=== PATIENT | female | born 1955 | race Caucasian/White ===

== ENCOUNTER 2016-12-11 18:17 | Emergency (ER) | payer BC ==
[~2016-12-11] VITALS: Ht 172.7 cm; Wt 65.8 kg
[~2016-12-11 18:17] MED LIST: IRON; LVT.1T PO; SULF1TAB38 PO
[2016-12-11] MEDS ORDERED: TETANUS,DIPTH,PERTUSS P/F (BOOSTRIX) 0.5 ML VIAL IM ONE ×2 (19:03→19:30)
--- NOTE | 2016-12-11 19:24 | ED Upper Extremity ---
General Stated Complaint: R HAND THUMB LAC Source: patient Exam Limitations: no limitations History of Present Illness Time seen by provider: 19:22 Initial Comments To ER with laceration to the lateral distal right thumb from a box knife. Tetanus is not up-to-date. Onset: just prior to arrival Severity: moderate Pain/Injury Location: left thumb Modifying Factors: Improves With Movement Allergies and Home Medications Allergies Coded Allergies: Cephalexin Monohydrate (Unverified Allergy, SWELLING OF LIPS AND EYES, 02/12) Home Medications Levothyroxine Sodium 100 Mcg Tab, 100 MG PO DAILY, (Reported) Trimethoprim/Sulfamethoxazole 1 Ea Tablet, 1 EA PO BID for 7 Days, Ref 0 Prescribed by: TONIA APPIAH on 10/14/11 2150 [Iron] , (Reported) Constitutional: see HPI EENTM: see HPI Respiratory: no symptoms reported Cardiovascular: no symptoms reported Genitourinary: no symptoms reported Musculoskeletal: see HPI Skin: no symptoms reported Psychiatric/Neurological: No Symptoms Reported Past Havhahh-Xbbttv-Mivxpj Hx Patient Social History Recent Foreign Travel: No Contact w/Someone Who Travel: No Immunizations Up To Date Date of Influenza Vaccine: May 15, 2011 Physical Exam Vital Signs Capillary Refill : General Appearance: WD/WN, no apparent distress HEENT: PERRL/EOMI, normal ENT inspection Neck: non-tender, full range of motion Respiratory: no respiratory distress, no accessory muscle use Gastrointestinal: normal bowel sounds, non tender Shoulder: normal inspection, non-tender Elbow/Forearm: normal inspection, non-tender, Left Hand: Left, laceration (0.5 cm laceration to the side of the distal thumb. Bleeding is easily controlled.) Neurologic/Psychiatric: alert, normal mood/affect, oriented x 3 Skin: normal color, warm/dry Laceration Repair : Wound Location: Upper Extremities Other Closure Supply: Wound Adhesive Departure Impression Impression: Primary Impression: Thumb laceration Disposition: 01 HOME, SELF-CARE Condition: Stable Departure-Patient Inst. Decision time for Depature: 19:24 Referrals: BENOIT MEYERS DO (PCP/Family) Primary Care Physician Patient Instructions: Laceration Repair With Glue (DC) Add. Discharge Instructions: 1. Return to ER for any concerns 2. Allow the glue to follow off on its own in 3-5 days. Wear the finger tip protector until then. CHRYSTAL BENEDICT APRN December 11, 2016 19:24
[2016-12-11 19:25] VITALS: BP 0/0
== END 2016-12-11 19:25 | disposition home or self-care (01) ==
LOC: EDUNIT# 18:17 → ER 18:19
DX: S61.011A Laceration without foreign body of right thumb without damage to nail, initial encounter (principal); Z23 Encounter for immunization; W26.0XXA Contact with knife, initial encounter; Y99.8 Other external cause status
CPT/HCPCS: 12001; 90715

== ENCOUNTER 2017-09-05 09:01 | Outpatient (CLI) | payer BC ==
[~2017-09-05] VITALS: Ht 172.7 cm; Wt 72.6 kg
[2017-09-05] MEDS ORDERED: LEVO125T6 PO (15:34)
== END 2017-09-05 15:36 ==
LOC: PREOP 09:01
PROVIDERS: ATTEND Surgery
DX: Z01.818 Encounter for other preprocedural examination (principal); Z86.010 Personal history of colon polyps

== ENCOUNTER → 2017-09-06 | Outpatient (CLI) | payer BC ==
[~2017-09-06] MED LIST changes: +LEVO125T6 PO
--- NOTE | 2017-09-06 18:53 | Diagnostic Imaging Report ---
INDICATION: Routine screening. Comparison is made with prior study from 01/26/2015 and 12/30/2013. The current study was also evaluated with a Computer Aided Detection (CAD) system. Both breasts remain heterogeneously dense, limiting the sensitivity of mammography. The parenchymal pattern is stable. No dominant mass or malignant-appearing microcalcifications are seen. The axillae are unremarkable. IMPRESSION: No mammographic features suspicious for malignancy are identified. ACR BI-RADS Category 1: Negative. Result letter will be mailed to the patient. Note: At least 10% of breast cancer is not imaged by mammography. Dictated by: Dictated on workstation # [id number]
== END ==
LOC: RAD 10:07
PROVIDERS: ATTEND Family Medicine
DX: Z12.31 Encounter for screening mammogram for malignant neoplasm of breast (principal)
CPT/HCPCS: 77067

== ENCOUNTER 2017-09-12 08:26 | Day surgery (SDC) | payer BC ==
--- NOTE | 2017-09-11 14:42 | History & Physicial ---
History of Present Illness History of Present Illness Reason for visit/HPI To undergo surveillance colonoscopy, having had a personal history of polyps Date of Admission 09/12/17 Date Seen by Provider: Sep 11, 2017 Time Seen by Provider: 14:42 I consulted on this patient on 09/11/17 14:37 Attending Physician Josi Gil MD Admitting Physician Wong Moreau DO Consult Allergies and Home Medications Allergies Coded Allergies: Cephalexin Monohydrate (Unverified Allergy, SWELLING OF LIPS AND EYES, 02/12) Home Medications Levothyroxine Sodium 125 Mcg Tablet, 125 MCG PO DAILY, (Reported) Past Mbdzqya-Wydslu-Lxtsli Hx Patient Social History Employed/Student: employed Recent Hopitalizations: No Immunizations Up To Date Date of Influenza Vaccine: May 15, 2017 Seasonal Allergies Seasonal Allergies: No Surgeries No Respiratory No Cardiovascular No Neurological No Reproductive System Hx Reproductive Disorders: No Genitourinary No Gastrointestinal Yes Polyps Musculoskeletal No Endocrine History of Endocrine Disorders: Yes (THYROID) Endocrine Disorders: Hypothyroidsim HEENT History of HEENT Disorders: No Cancer No Psychosocial History of Psychiatric Problem: No Integumentary History of Skin or Integumenta: No Blood Transfusions History of Blood Disorders: No Constitutional: no symptoms reported EENTM: no symptoms reported Respiratory: no symptoms reported Cardiovascular: no symptoms reported Gastrointestinal: no symptoms reported Genitourinary: no symptoms reported Musculoskeletal: no symptoms reported Skin: no symptoms reported Psychiatric/Neurological: No Symptoms Reported Physical Exam Vital Signs Capillary Refill : General Appearance: No Apparent Distress Neck: Normal Inspection Respiratory: Lungs Clear Cardiovascular: Regular Rate, Rhythm Gastrointestinal: Non Tender, Soft Rectal: Deferred Neurologic/Psychiatric: Alert, Oriented x3 Skin: Warm/Dry Assessment/Plan Assessment and Plan Lady with a history of adenomatous polyps. For surveillance colonoscopy. Problems: JOSI GIL MD Sep 11, 2017 14:42
[~2017-09-12] VITALS: Ht 172.7 cm; Wt 72.6 kg
[2017-09-12] MEDS ORDERED: NS IV 500 ML 500 ML IV PRN (08:37)
[2017-09-12 08:40] VITALS: BP 104/56
--- NOTE | 2017-09-12 08:56 | Conscious Sedation/ASA ---
Conscious Sedation Pre-Proced Time Reviewed: 08:55 ASA Class: 2 Airway Mallampati Classification: ([place] appropriate class) I. II. III, IV Lungs Heart ASA score ASA 1: a normal healthy patient ASA 2: a patient with a mild systemic disease (mid diabetes, controlled hypertension, obesity ASA 3: a patient with a severe systemic disease that limits activity (angina , COPD, prior Myocardial infarction) ASA 4: a patient with an incapacitating disease that is a constant threat to life (CHF, renal failure) ASA 5: a moribund patient not expected to survive 24 hrs. (ruptured aneurysm) ASA 6: a declared brain patient whose organs are being harvested. For emergent operations, add the letter E after the classification Grade 1 Sedation Plan: Discussed options with patient/fam Note The patient is an appropriate candidate to undergo the planned procedure, sedation, and anesthesia. The patient immediately re-assessed prior to indication. JOSI GIL MD Sep 12, 2017 8:56 am
[2017-09-12] MEDS ORDERED: MIDAZOLAM 2 MG/2 ML (VERSED) VIAL ONE ×3 (09:14)
[2017-09-12] MEDS ORDERED: fentaNYL INJECTION 100 MCG/2 ML AMP ONE (09:15)
[2017-09-12] MEDS: fentaNYL INJECTION 100 MCG/2 ML AMP IVP PRN ×2 (09:22→09:31)
[2017-09-12] MEDS: MIDAZOLAM 2 MG/2 ML (VERSED) VIAL IVP PRN ×3 (09:24→09:32)
--- NOTE | 2017-09-12 09:51 | Endo Procedure Record ---
Endo Procedure Report Date of Procedure Last Colonoscopy: Yes (2010) Sep 12, 2017 Surgeon (s) JOSI GIL MD Post Procedure/Op Diagnosis Very few sigmoid diverticula Procedure Performed Colonoscopy to cecum Description of Procedure Anesthesia Type: Conscious Sedation Specimen(s) collected/removed none Description of the Procedure indication for the procedure: This lady, with a personal history of adenomatous polyps in the past, came in for surveillance colonoscopy. Informed consent was obtained after reviewing the procedure in detail. Description of the procedure: She was placed in left lateral decubitus position and her vital signs were monitored. Conscious sedation was achieved using Versed and fentanyl. Digital rectal examination was unremarkable. The colonoscope was then introduced into the rectum and advanced all the way up to the cecum The quality of bowel preparation was excellent. Scope was then withdrawn slowly and the mucosa examined in a systematic fashion. Finding: Very few sigmoid diverticula. No recurrent polyps were found. She tolerated the procedure well and was taken back to the nursing area in a stable condition. Impression: Surveillance colonoscopy. No recurrent polyps. Family history of polyps in her brother. Recommend screening examination in 5 years. Copies To: BENOIT MEYERS XAVIER M MD Sep 12, 2017 9:51 am
--- NOTE | 2017-09-12 09:52 | Discharge Inst-Simple/Standard ---
Discharge Inst-Standard Discharge Medications New, Converted or Re-Newed RX: Other Patient Instructions/Follow Up Plan of Care/Instructions/FU: Repeat colonoscopy in 5 years Activity as Tolerated: Yes Discharge Diet: No Restrictions JOSI GIL MD Sep 12, 2017 9:52 am
[2017-09-12 10:05] VITALS: BP 111/59
[2017-09-12 10:37] VITALS: BP 106/69
[2017-09-12 10:39] VITALS: BP 106/69
== END 2017-09-12 10:40 | disposition home or self-care (01) ==
LOC: ENDO 08:26
PROVIDERS: ATTEND Surgery
DX: Z12.11 Encounter for screening for malignant neoplasm of colon (principal); K57.30 Diverticulosis of large intestine without perforation or abscess without bleeding; Z86.010 Personal history of colon polyps; Z83.71 Family history of colonic polyps; E03.9 Hypothyroidism, unspecified; Z79.899 Other long term (current) drug therapy

== ENCOUNTER 2019-06-21 16:43 | Emergency (ER) | payer BC ==
[~2019-06-21] VITALS: Ht 172 cm; Wt 67.7 kg
[2019-06-21] MEDS ORDERED: DIAZ5TAB3 (17:02)
--- NOTE | 2019-06-21 17:46 | Diagnostic Imaging Report ---
INDICATION: Left wrist pain after fall. COMPARISON: None available. TECHNIQUE: Three views of the left wrist were obtained. FINDINGS: There is an acute, mildly comminuted fracture of the distal radial metaphysis. This has a dominant transverse fracture across the metaphysis, but there may be a sagittal oriented fracture line extending into the distal radial articular surface. There is approximately 10 degrees of dorsal angulation of the distal radial articular surface. No fracture of the ulnar styloid. IMPRESSION: 1. Acute, mildly comminuted distal radial fracture likely involves the radial articular surface and has dorsal angulation of approximately 10 degrees. Dictated by: Dictated on workstation # [id number]
--- NOTE | 2019-06-21 17:52 | ED Upper Extremity ---
General Chief Complaint: Upper Extremity Stated Complaint: L WRIST PAIN Nursing Triage Note: Patient ambulatory to triage room with complaint of left wrist pain. Patient states they were painting and moving a ladder when she lost her balance and the left wrist/ hand hit against the wall. This occurred approximately 1 and 1/2 hours ago. patient has deformity present to the left wrist. There are radial pulses present. Nursing Sepsis Screen: No Definite Risk Source: patient Exam Limitations: no limitations History of Present Illness Date Seen by Provider: Jun 21, 2019 Time Seen by Provider: 17:52 Initial Comments 54-year-old female patient presents with left wrist pain after losing her balance and falling. Patient reports hitting her left wrist and hand against the wall. Denies hitting her head or loss of consciousness. Location Injury Occurred: home Onset: other (1.5 hours prior to arrival) Pain/Injury Location: left wrist Method of Injury: fell Modifying Factors: Improves With Immobilization; Worse With Movement Allergies and Home Medications Allergies Coded Allergies: Cephalexin Monohydrate (Unverified Allergy, Unknown, SWELLING OF LIPS AND EYES, 09/12/17) Home Medications Hydrocodone Bit/Acetaminophen 1 Tab Tab, 1 EACH PO Q4-6HR PRN for PAIN-MODERATE Prescribed by: JAKE OBRIEN on 06/21/19 1806 Levothyroxine Sodium 125 Mcg Tablet, 125 MCG PO DAILY, (Reported) Patient Home Medication List Home Medication List Reviewed: Yes Review of Systems Constitutional: no symptoms reported EENTM: no symptoms reported Respiratory: no symptoms reported Cardiovascular: no symptoms reported Gastrointestinal: no symptoms reported Musculoskeletal: see HPI; No back pain; joint pain, joint swelling; No neck pain Skin: no symptoms reported Psychiatric/Neurological: No Symptoms Reported All Other Systems Reviewed Negative Unless Noted: Yes (Negative excepted noted.) Past Dhbayac-Yrsmcc-Obvlmm Hx Past Med/Social Hx: Reviewed Nursing Past Med/Soc Hx Patient Social History Alcohol Use: Denies Use Recreational Drug Use: No Smoking Status: Never a Smoker 2nd Hand Smoke Exposure: No Recent Foreign Travel: No Contact w/Someone Who Travel: No Recent Infectious Disease Expo: No Recent Hopitalizations: No Physical Abuse: No Sexual Abuse: No Mistreated: No Fear: No Immunizations Up To Date PED Vaccines UTD: Yes Date of Influenza Vaccine: May 15, 2017 Seasonal Allergies Seasonal Allergies: No Past Medical History Surgeries: Yes (achilles tendon) Respiratory: No Cardiac: No Neurological: No Reproductive Disorders: No Genitourinary: No Gastrointestinal: Yes Polyps Musculoskeletal: No Endocrine: Yes (THYROID) Hypothyroidsim HEENT: No Cancer: No Psychosocial: No Integumentary: No Blood Disorders: No Family Medical History Reviewed Nursing Family Hx No Pertinent Family Hx Physical Exam Vital Signs Vital Signs - First Documented 06/21/19 16:48 Temp 36.8 Pulse 58 Resp 18 B/P (MAP) 123/76 (92) Pulse Ox 99 O2 Delivery Room Air Capillary Refill : Less Than 3 Seconds Height, Weight, BMI Height: 5'8.00" Weight: 160lbs. 0.0oz. 72.987455br; 22.00 BMI Method:Stated General Appearance: WD/WN, no apparent distress HEENT: PERRL/EOMI, pharynx normal Neck: supple, normal inspection Cardiovascular: normal peripheral pulses, regular rate, rhythm, no murmur Respiratory: lungs clear, normal breath sounds, no respiratory distress, no accessory muscle use Shoulder: normal inspection, non-tender, no evidence of injury, normal ROM Elbow/Forearm: normal inspection, non-tender, no evidence of injury, normal ROM, Left Wrist: Yes bone tenderness (left wrist), Yes deformity (and left wrist), Yes ecchymosis (left wrist), Yes limited ROM (left wrist), Yes pain (left wrist), Yes soft tissue tenderness (left wrist), Yes swelling (left wrist) Hand: Left Neurologic/Tendon: normal sensation, normal motor functions, normal tendon functions, responds to pain, no evidence tendon injury Neurologic/Psychiatric: no motor/sensory deficits, alert, normal mood/affect, oriented x 3 Skin: normal color, warm/dry, ecchymosis Procedures/Interventions Splinting and Joint Reduction : Location: left wrist Pre-Proc Neuro Vasc Exam: normal Post-Proc Neuro Vasc Exam: normal Arm Sling: Large Hand-Made Type: orthoglass Splint Application: Short Arm Progress/Results/Core Measures Results/Orders My Orders Orders - JAKE OBRIEN Wrist, Left, 3 Views Or More (06/21/19 17:16) Rx-Hydrocodone/Apap 5-325 Mg (Rx-Vicodin (06/21/19 18:15) Medications Given in ED Current Medications Medications Dose Ordered Sig/[place] Route Start Time Stop Time Status Last Admin Dose Admin Acetaminophen/ Hydrocodone Bitart 1 ea Q4H PRN PO 06/21/19 18:15 06/21/19 19:03 DC 06/21/19 18:28 1 EA Vital Signs/I&O 06/21/19 06/21/19 16:48 19:00 Temp 36.8 36.5 Pulse 58 59 Resp 18 18 B/P (MAP) 123/76 (92) 112/74 (92) Pulse Ox 99 100 O2 Delivery Room Air Room Air Blood Pressure Mean: 92 POS Diagnostic Imaging Diagonstic Imaging: Xray Plain Films/CT/US/NM/MRI: other ( left wrist) Comments POSDate of Exam:06/21/19 WRIST, LEFT, 3 VIEWS OR MORE INDICATION: Left wrist pain after fall. COMPARISON: None available. TECHNIQUE: Three views of the left wrist were obtained. FINDINGS: There is an acute, mildly comminuted fracture of the distal radial metaphysis. This has a dominant transverse fracture across the metaphysis, but there may be a sagittal oriented fracture line extending into the distal radial articular surface. There is approximately 10 degrees of dorsal angulation of the distal radial articular surface. No fracture of the ulnar styloid. IMPRESSION: 1. Acute, mildly comminuted distal radial fracture likely involves the radial articular surface and has dorsal angulation of approximately 10 degrees. Dictated on workstation # [id number] Reviewed: Reviewed by Me (radiology report reviewed by me) Departure Impression Primary Impression: Distal radius fracture, left Qualified Codes: S52.502A - Unspecified fracture of the lower end of left radius, initial encounter for closed fracture Disposition: HOME, SELF-CARE Condition: Improved Departure-Patient Inst. Decision time for Depature: 18:05 Referrals: BENOIT MEYERS DO (PCP/Family) Primary Care Physician JACQUIE LECHUGA MD, MICHAEL P MD Patient Instructions: Wrist Fracture (DC) Add. Discharge Instructions: All discharge instructions reviewed with patient and/or family. Voiced understanding. Medications as directed. No motrin or aleve. Elevate the left arm and use ice packs as needed. Keep the splint clean and dry. Arm sling as instructed. Right arm activities only until released by or so. Follow-up with Dr. Lechuga or the ortho of your choice for further management. Call tomorrow morning for appointment time. Return in the emergency department for worsened pain, pain from the splint, discoloration of fingers, numbness, or any other concerns. Scripts Hydrocodone Bit/Acetaminophen (Hydrocodone/Acetaminophen 5/325mg Tablet) 1 Tab Tab 1 EACH PO Q4-6HR PRN for PAIN-MODERATE MDD 10, #20 TAB 0 Refills Prov: JAKE OBRIEN 06/21/19 JAKE OBRIEN Jun 21, 2019 17:52 POS
[2019-06-21] MEDS ORDERED: ACHD5005 PO (18:06)
[2019-06-21] MEDS ORDERED: RX-HYDROCODONE/APAP 5/325 MG #4 TAB PK PO PRN (18:15)
[2019-06-21 19:00] VITALS: BP 112/74
== END 2019-06-21 19:03 | disposition home or self-care (01) ==
LOC: EDUNIT# 16:43 → ER 16:45
DX: S52.502A Unspecified fracture of the lower end of left radius, initial encounter for closed fracture (principal); E03.9 Hypothyroidism, unspecified; Z88.1 Allergy status to other antibiotic agents; W22.8XXA Striking against or struck by other objects, initial encounter; W11.XXXA Fall on and from ladder, initial encounter
CPT/HCPCS: 73110

== ENCOUNTER → 2020-05-17 | Outpatient (CLI) | payer BC, MEDICARE ==
[~2020-05-17] MED LIST changes: +ACHD5005 PO; +DIAZ5TAB49
--- NOTE | 2020-05-17 12:37 | Diagnostic Imaging Report ---
INDICATION: Routine screening. Comparison is made to prior mammogram 09/06/2017 and 01/26/2015. 2-D and 3-D bilateral screening mammography was performed CAD. Both breasts are heterogeneously dense, limiting the sensitivity of mammography. Benign nodular densities in the outer portions of both breasts are noted, likely intraparenchymal lymph nodes. No spiculated mass or malignant-appearing microcalcifications are seen. Axillae are unremarkable. IMPRESSION: BI-RADS Category 2 No mammographic features suspicious for malignancy are identified. ACR BI-RADS Category 2: Benign findings. Result letter will be mailed to the patient. Note: At least 10% of breast cancer is not imaged by mammography. Dictated by: Dictated on workstation # [id number]
== END ==
LOC: RAD 08:53
PROVIDERS: ATTEND Family Medicine
DX: Z12.31 Encounter for screening mammogram for malignant neoplasm of breast (principal)
CPT/HCPCS: 77063; 77067

== ENCOUNTER → 2021-05-18 | Outpatient (CLI) | payer MEDICARE ==
--- NOTE | 2021-05-18 16:36 | Diagnostic Imaging Report ---
INDICATION: Routine screening. COMPARISON: 05/17/2020 and 09/06/2017. TECHNIQUE: 2D and 3D bilateral screening mammography was performed with CAD. FINDINGS: Both breasts are heterogeneously dense, limiting the sensitivity of mammography. Benign nodules in the outer right breast are stable. No new mass or malignant-appearing microcalcifications are seen. The axillae are unremarkable. IMPRESSION: No mammographic features suspicious for malignancy are identified. ACR BI-RADS Category 2: Benign findings. Result letter will be mailed to the patient. Note: At least 10% of breast cancer is not imaged by mammography. Dictated by: Dictated on workstation # [id number]
== END ==
LOC: RAD 14:45
PROVIDERS: ATTEND Family Medicine
DX: Z12.31 Encounter for screening mammogram for malignant neoplasm of breast (principal)
CPT/HCPCS: 77063; 77067

== ENCOUNTER → 2022-02-02 | Outpatient (CLI) | payer MEDICARE ==
[2022-02-02 12:08] LABS: HEMATOCRIT 41 % (35-52); HEMOGLOBIN 13.6 g/dL (11.5-16.0); MEAN CORPUSCULAR HEMOGLOBIN 32 pg (25-34); MEAN CORPUSCULAR HGB CONC 33 g/dL (32-36); MEAN CORPUSCULAR VOLUME 95 fL (80-99); PLATELET COUNT 291 10^3/uL (130-400)
[2022-02-02 12:29] LABS: ALANINE AMINOTRANSFERASE 30 U/L (0-55); ALBUMIN 4.9 GM/DL (3.2-4.5); ALKALINE PHOSPHATASE 89 U/L (40-136); BILIRUBIN,TOTAL 1.2 MG/DL (0.1-1.0); BUN/CREATININE RATIO 22; CALCIUM 10.2 MG/DL (8.5-10.1); CARBON DIOXIDE 24 MMOL/L (21-32); CHLORIDE 106 MMOL/L (98-107); CREATININE SERUM 0.83 MG/DL (0.60-1.30); GFR ESTIMATED 78; GLUCOSE 84 MG/DL (70-105); POTASSIUM 3.8 MMOL/L (3.6-5.0); SODIUM 146 MMOL/L (135-145); TOTAL PROTEIN 8.3 GM/DL (6.4-8.2)
== END ==
LOC: CARD 11:21
PROVIDERS: ATTEND Family Medicine
DX: R07.9 Chest pain, unspecified (principal); R00.1 Bradycardia, unspecified
CPT/HCPCS: 36415; 80053; 84443; 84484; 85027; 93005

== ENCOUNTER → 2022-09-21 | Outpatient (CLI) | payer MEDICARE ==
--- NOTE | 2022-09-21 12:17 | Diagnostic Imaging Report ---
Digital mammogram bilateral screening with computer aided detection. COMPARISON: This study was compared to the prior exams of 05/18/2021 and 05/17/2020. There are no current complaints. FINDINGS: The fibroglandular tissue in both breasts is heterogeneously dense. This does limit the sensitivity of this exam. When compared to the previous study there does not appear to have been any significant change. There is no primary or secondary sign of malignancy noted. IMPRESSION: 1. There is no evidence for malignancy. BI-RADS CATEGORY: 1 NEGATIVE ACR BI-RADS Category 1: Negative. Result letter will be mailed to the patient. Note: At least 10% of breast cancer is not imaged by mammography. Dictated by: Dictated on workstation # [id number]
== END ==
LOC: RAD 07:09
PROVIDERS: ATTEND Family Medicine
DX: Z12.31 Encounter for screening mammogram for malignant neoplasm of breast (principal)
CPT/HCPCS: 77063; 77067